=== PATIENT | male | born 1950 | race Caucasian/White ===

== ENCOUNTER 2016-12-11 08:02 | Outpatient (CLI) | payer MEDICARE, BC ==
--- NOTE | ~2016-12-11 | HEMODYNAMI ---
PATIENT:HALLIE SMITH MEDICAL RECORD: [id number] : 46 LOCATION:[facility] ADMISSION DATE: 12/11/16 Generatedon:12/11/20169:50 Patient name: HALLIE SMITH Patient #: [id number] SSN: : 1950 Date of study: 12/11/2016 Page: Of Hemodynamic Procedure Report Patient Data Patient Demographics Procedure consent was obtained First Name: HALLIE Gender: Male Last Name: LUIS : 1950 Patient #: [id number] Age: 66 year(s) Race: Unknown Additional ID: [id number] Contact details [address]: [address] [place] [address] State: [place] City: [place] Zip code: [address] Past Medical History Allergies: No known allergies Admission Admission Data Admission Date: 12/11/2016 Admission Time: 8:02 Procedure Procedure Types Cath Procedure Diagnostic Procedure LHC LHC w/Coronaries Miscellaneous Procedures Moderate Sedation up to 30 minutes Procedure Description Procedure Date Procedure Date: 12/11/2016 Procedure Start Time: 9:36 Procedure End Time: 9:49 Procedure Staff Name Function Mamadou Crawford MD Performing Physician Dorothy William RT Scrub Ara Baptiste RN Nurse Sarah Petty RT Monitor Procedure Data Cath Procedure Fluoroscopy Diagnostic fluoroscopy Total fluoroscopy Time: 2.3 time: 2.3 min min Diagnostic fluoroscopy Total fluoroscopy dose: 492 dose: 492 mGy mGy Contrast Material Contrast Material Type Amount (ml) Isovue 300 57 Entry Location Entry Primary Successful Side Size Upsize Upsize Entry Closure Mayes ccessful Closure Location (Fr) 1 (Fr) 2 (Fr) Remarks Device Remarks Radial Right 6 Fr Mechanical artery Short Compression Estimated blood loss: 5 ml Diagnostic catheters Device Type Used For End Catheter Placement Terumo 5Fr Ramon 110cm LV Angiography catheter Terumo 5Fr Ramon 110cm Left Coronary catheter Angiography Terumo 5Fr Ramon 110cm Right Coronary catheter Angiography Procedure Complications No complications Procedure Medications Medication Administration Route Dosage Oxygen NC 2 l/min Lidocaine 2% added to field 20 Heparin Flush Bag added to field 2 bags (1000units/500ml NS) 0.9% NaCl I.V. 100 ml/hr Radial Cocktail added to field 1 syringe (Verapomil 2mg/Nitro 400mcg/Heparin 1500units) Versed I.V. 2 mg Fentanyl I.V. 100 mcg Versed I.V. 1 mg Fentanyl I.V. 50 mcg Radial Cocktail I.A. 1 syringe (Verapomil 2mg/Nitro 400mcg/Heparin 1500units) Versed I.V. 1 mg Fentanyl I.V. 50 mcg Hemodynamics Rest Heart Rate: 69 (bpm) Pressure Samples Time Site Value (mmHg) Purpose Heart Use Rate(bpm) 9:41 LV 111/-18,-4 EDP 64 9:41 AO 90/52(69) Pullback 76 9:41 LV 112/-13,-6 Pullback 76 Gradients Valve Time Site 1 Site 2 Mean SEP/DFP Peak To Heart Use (mmHg) (sec/min) Peak Rate (mmHg) (bpm) Aortic 9:41 LV AO 35 8 22 76 112/-13,-6 90/52(69) Calculations Valve P-P Mean Valve Index Valve Source Name Gradient Area Flow (cm2) Aortic 22 35 22 35 Snapshots Pre Cath Intra NCS Post Cath Vital Signs Time Heart Resp SPO2 etCO2 NIBP (mmHg) Rhythm Pain Sedation Rate (ipm) (%) (mmHg) Status Level (bpm) 9:14:12 68 20 98 14.9 162/89(122) NSR 0 (11) 10(A) , No pain 9:18:28 68 19 97 21.6 140/84(100) NSR 0 (11) 10(A) , No pain 9:22:40 64 20 96 0 129/80(105) NSR 0 (11) 10(A) , No pain 9:26:50 60 27 96 6.7 124/76(97) NSR 0 (11) 10(A) , No pain 9:31:00 59 18 97 0 130/67(97) NSR 0 (11) 10(A) , No pain 9:35:11 59 18 96 0 124/67(98) NSR 0 (11) 9(A) , No pain 9:39:22 59 16 97 21.6 118/69(91) NSR 0 (11) 9(A) , No pain 9:43:33 61 54 97 36.6 109/57(77) NSR 0 (11) 9(A) , No pain 9:47:39 69 18 98 37.3 111/64(85) NSR 0 (11) 10(A) , No pain Medications Time Medication Route Dose Verified Delivered Reason Notes E ffectiveness by by 9:08:31 Oxygen NC 2 l/min Mamadou Buffie used for Ty Baptiste RN procedure 9:08:38 Lidocaine 2% added 20ml Mamadou Mamadou for local to vial Ty Crawford MD anesthetic field 9:08:45 Heparin Flush added 2 bags Mamadou Mamadou used for Bag to Ty Crawford MD procedure (1000units/500ml field NS) 9:08:55 0.9% NaCl I.V. 100 Mamadou Buffie Per ml/hr Ty Baptiste RN physician 9:19:50 Radial Cocktail added 1 Mamadou Mamadou (Verapomil to syringe Ty Crawford MD 2mg/Nitro field 400mcg/Heparin 1500units) 9:29:24 Versed I.V. 2 mg Mamadou Buffie for sedation Ty Baptiste RN 9:29:30 Fentanyl I.V. 100 mcg Mamadou Buffie for sedation Ty Baptiste RN 9:33:13 Versed I.V. 1 mg Mamadou Buffie for sedation Ty Baptiste RN 9:33:16 Fentanyl I.V. 50 mcg Mamadou Buffie for sedation Ty Baptiste RN 9:39:17 Radial Cocktail I.A. 1 Mamadou Mamadou for (Verapomil syringe Ty Crawford MD vasodilation 2mg/Nitro 400mcg/Heparin 1500units) 9:42:19 Versed I.V. 1 mg Mamadou Buffie for sedation Ty Baptiste RN 9:42:26 Fentanyl I.V. 50 mcg Mamadou Buffie for sedation Ty Baptiste RN Procedure Log Time Note 9:00:32 Sarah Counts RT(R) sent for patient. Start room use. 9:05:50 Patient received from Pre/Post Procedure Room to CCL 2 Alert and oriented. Tansferred to table in Supine position. 9:08:31 Oxygen 2 l/min NC was administered by Ara Baptiste RN; used for procedure; 9:08:38 Lidocaine 2% 20ml vial added to field was administered by Mamadou Crawford MD; for local anesthetic; 9:08:45 Heparin Flush Bag (1000units/500ml NS) 2 bags added to field was administered by Mamadou Crawford MD; used for procedure; 9:08:55 0.9% NaCl 100 ml/hr I.V. was administered by Ara Baptiste RN; Per physician; 9:12:40 Time tracking: Regular hours 9:12:44 Plan of Care:Hemodynamics will remain stable., Cardiac rhythm will remain stable., Comfort level will be maintained., Respiratory function will remain adequate., Patient/ family verbilizes understanding of procedure., Procedure tolerated without complication., Recovers from procedure without complications.. 9:12:57 Warm blankets applied, and ayde hugger turned on for patient comfort. 9:12:58 Correct patient and procedure confirmed by team. 9:12:59 Signed procedure consent form obtained from patient. 9:13:00 ECG and BP/O2 sat monitors applied to patient. 9:13:00 Vital chart was started 9:13:04 Rhythm: sinus rhythm 9:13:06 Full Disclosure recording started 9:13:16 H&P Date Dictated: 11/17/2016 Within 30 days and on chart., H&P Addendum completed by physician on day of procedure. (MUST COMPLETE FOR ALL OUTPATIENTS). 9:13:18 Pre-procedure instructions explained to patient. 9:13:18 Pre-op teaching completed and patient verbalized understanding. 9:13:20 Family unavailable. 9:13:22 Patient NPO since Midnight. 9:13:29 Patient allergic to No known allergies 9:13:31 Is the patient allergic to Iodine/contrast media? No. 9:13:33 Is patient on blood thinner?No 9:13:35 Patient diabetic? No. 9:13:38 Previous problem with sedation/anesthesia? No ? 9:13:39 Snore? No 9:13:40 Sleep apnea? No 9:13:40 Deviated septum? No 9:13:48 Sticks out tongue? Yes 9:13:49 Opens mouth fully? Yes 9:13:51 Airway obstruction? No ? 9:13:52 Dentures? No ? 9:13:54 Pre procedure: right dorsailis pedis pulse 2+ Normal; easily identifiable; not easily obliterated 9:13:56 Modified Deep's test Ulnar < 7 seconds 9:13:58 Patient pain scale 0/10 ?. 9:14:03 IV patent on arrival in left hand with 0.9% NaCl at KVO. 9:14:06 Lab results completed and on chart. 9:14:09 Right Radial & Right Groin area was prepped with chlora-prep and draped in sterile fashion 9:14:10 Alarms reviewed by R. N. 9:14:10 Sharps counted by scrub and verified by R.N. 9:14:13 Use device set Radial Dx 9:14:14 Acist Syringe opened to sterile field. 9:14:14 Medline Cath Pack opened to sterile field. 9:14:15 Bag Decanter opened to sterile field. 9:14:15 Terumo 6Fr Slender Glidesheath opened to sterile field. 9:14:15 St Roberto 260cm J .035 wire opened to sterile field. 9:14:16 Acist Hand Control opened to sterile field. 9:14:16 Acist Manifold opened to sterile field. 9:14:16 Tegaderm 4 x 4 opened to sterile field. 9:14:17 MBrace Wrist Support opened to sterile field. 9:15:45 Baseline sample Acquired. 9:19:50 Radial Cocktail (Verapomil 2mg/Nitro 400mcg/Heparin 1500units) 1 syringe added to field was administered by Mamadou Crawford MD; ; 9:21:49 Final Timeout: patient, procedure, and site verified with staff and physician. All members of the team are in agreement. 9:21:53 Right Radial site verified by team. 9:21:56 Physical assessment completed. ASA score P 2 - A patient with mild systemic disease as per Mamadou Crawford MD. 9:22:01 Sedation plan: IV Moderate Sedation Versed, Fentanyl 9:27:54 Zero performed for pressure channel P1 9:29:24 Versed 2 mg I.V. was administered by Ara Baptiste RN; for sedation; 9:29:30 Fentanyl 100 mcg I.V. was administered by Ara Baptiste RN; for sedation; 9:33:13 Versed 1 mg I.V. was administered by Ara Baptiste RN; for sedation; 9:33:16 Fentanyl 50 mcg I.V. was administered by Ara Baptiste RN; for sedation; 9:36:22 Procedure started. 9:36:28 Local anesthetic to right radial artery with Lidocaine 2% by Mamadou Crawford MD.INITIAL ACCESS ONLY 9:38:20 A 6 Fr Short sheath was inserted into the Right Radial artery 9:39:02 Cook 21G 4cm Radial Needle opened to sterile field. 9:39:17 Radial Cocktail (Verapomil 2mg/Nitro 400mcg/Heparin 1500units) 1 syringe I.A. was administered by Mamadou Crawford MD; for vasodilation; 9:39:29 A Terumo 5Fr Ramon 110cm catheter was advanced over the wire and used for LV Angiography. 9:41:22 LV gram done using ALMEIDA 9:41:27 EF : 55 % 9:41:28 LV hemodynamics recorded. 9:41:30 Injector settings: Ml/sec: 5, Volume: 15, 9:42:00 A Terumo 5Fr Ramon 110cm catheter was advanced over the wire and used for Left Coronary Angiography. 9:42:19 Versed 1 mg I.V. was administered by Ara Baptiste RN; for sedation; 9:42:26 Fentanyl 50 mcg I.V. was administered by Ara Baptiste RN; for sedation; 9:44:06 A Terumo 5Fr Ramon 110cm catheter was advanced over the wire and used for Right Coronary Angiography. 9:45:20 Catheter removed. 9:46:07 Terumo TR Band Standard opened to sterile field. 9:46:16 Sheath removed intact; hemostasis achieved with Mechanical Compression to the Right Radial artery. 9:46:18 Procedure ended.(Physican Out) 9:46:37 Fluoroscopy time 02.30 minutes. 9:46:41 Fluoroscopy dose: 492 mGy 9:46:41 Flurop Dose total: 492 9:46:49 Contrast amount:Isovue 300 57ml. 9:46:50 Sharps counted by scrub and verified by R.N. 9:46:52 TR band inflated with 12cc of air. 9:46:53 Insertion/operative site no bleeding no hematoma. 9:46:59 Post right radial artery:stable, clean and dry 9:47:00 Post Procedure Pulses reassessed and unchanged 9:47:02 Post-procedure physical assessment completed. ASA score P 2 - A patient with mild systemic disease as per Mamadou Crawford MD. 9:47:04 Post procedure rhythm: unchanged. 9:47:06 Estimated blood loss: 5 ml 9:47:08 Post procedure instruction explained to patient.Patient verbalizes understanding. 9:47:09 Patient needs reinforcement of post procedure teaching. 9:47:32 Procedure type changed to Cath procedure, Diagnostic procedure, LHC, LHC w/Coronaries, Miscellaneous Procedures, Moderate Sedation up to 30 minutes 9:47:37 Procedure Complication : No complications 9:47:40 See physician's report for complete and final results. 9:47:59 Procedure and supply charges have been captured, reviewed, submitted and are correct. 9:49:31 Vital chart was stopped 9:49:34 Report given to Pre/Post Procedure Room. 9:49:36 Patient transfered to Pre/Post Procedure Room with Stretcher. 9:49:49 Procedure ended. 9:49:49 Full Disclosure recording stopped 9:49:53 End room use (Document Last) Device Usage Item Name Manufacture Quantity Catalog Hospital Part Current Minimal Lot# / Number Charge Number Stock Stock Serial# Code Acist Acist 1 [id number] [id number] [id number] [id number] 20 Syringe [employer] Medline Cardinal 1 [id number] [id number] 95370 [id number] 5 Cath Pack Health Bag Microtek 1 2001S [id number] 20025 875156 5 Decanter [employer] Terumo 6Fr Terumo 1 [id number] 596982 095335 241621 [address] St Roberto 1 420808 223898 317056 240454 30 260cm J .035 wire Acist Hand Acist 1 28661 780755 436418 174033 5 Control [employer] Inc Acist Acist 1 95273 846609 847992 969470 5 Manifold [employer] Inc Tegaderm 4 3M 1 1626W 727481 682389 667483 5 x 4 MBrace Advanced 1 140-0250-00 820784 27982 018836 5 Wrist Vascular Support [employer] Cook 21G [place] 1 [id number] 774807 468025 014054 5 4cm Radial Needle Terumo 5Fr Terumo 1 50-3047 099698 854337 036693 5 Ramon 110cm catheter Terumo TR Terumo 1 [id number] 718698 803030 571956 40 Band Standard Signature Audit [place] Stage Time Signature Unsigned Intra-Procedure 12/11/2016 Sarah 9:50:12 AM Counts RT(R) Signatures Monitor : Sarah Signature : Counts RT Date : Time : [place] [id number] [facility] [place] [address]
[2016-12-11 07:35] VITALS: BP 136/64
[2016-12-11 07:47] LABS: BASOPHILS 0.2 % (0-2); EOSINOPHILS 1.7 % (0-7); HEMATOCRIT 45.7 % (42.0-54.0); HEMOGLOBIN 15.5 g/dL (13.5-17.5); IMMATURE GRANULOCYTES 0.2 % (0-5); LYMPHOCYTES 34.3 % (15-50); MCHC 33.9 g/dL (31.0-37.0); MCV 97.2 fL (80.0-100.0); MEAN PLATELET VOLUME 12.3 fL (7.4-10.4); MONOCYTES 8.4 % (2-11); NEUTROPHILS 55.2 % (40-80); PLATELET COUNT 170 10x3/uL (130-400); RDW 12.9 % (11.5-14.5)
[2016-12-11 07:55] LABS: CALC OSMOLALITY 278 mosm/kg (275-300); CHLORIDE - SERUM 105 mmol/L (98-107); GLUCOSE 96 mg/dL (74-106); SODIUM 139 mmol/L (136-145); UREA NITROGEN 16 mg/dL (7-18); eGFR NON AFRICAN AMERICAN 79 mL/min (90-120)
[~2016-12-11 08:02] MED LIST: LISINOPRIL10 MG PO
[2016-12-11] MEDS ORDERED: NORVASC5 MG PO (10:03)
--- NOTE | 2016-12-11 10:15 | NUR ---
2L NC, NO RESP DISTRESS. RIGHT WRIST TR BAND CDI, NO BLEEDING OR HEMATOMA NOTED. NO C/O PAIN OR NAUSEA. VSS. CALL LIGHT WITHIN REACH.
--- NOTE | 2016-12-11 10:45 | NUR ---
2L NC, NO RESP DISTRESS. RIGHT WRIST TR BAND CDI, NO BLEEDING OR HEMATOMA NOTED. NO C/O PAIN OR NAUSEA. VSS. WILL CONTINUE TO MONITOR.
--- NOTE | 2016-12-11 11:00 | NUR ---
SANDWICH TRAY AND DRINK GIVEN. NO C/O NAUSEA OR PAIN. VSS. RIGHT WRIST TR BAND CDI, NO BLEEDING OR HEMATOMA NOTED.
--- NOTE | 2016-12-11 11:30 | NUR ---
3CC OF AIR REMOVED FROM TR BAND, NO BLEEDING NOTED.
--- NOTE | 2016-12-11 11:49 | NUR ---
3CC OF AIR REMOVED FROM TR BAND, NO BLEEDING NOTED.
--- NOTE | 2016-12-11 12:15 | NUR ---
2CC OF AIR REMOVED FROM TR BAND, NO BLEEDING NOTED. LEFT AC PIV D/C'D WITH CATHETER INTACT, BAND AID TO SITE. UP TO BEDSIDE TO GET DRESSED.
--- NOTE | 2016-12-11 12:19 | NUR ---
TO RESTROOM TO VOID.
--- NOTE | 2016-12-11 12:23 | NUR ---
REMAINING AIR REMOVED FROM TR BAND, DRESSING TO SITE. DISCHARGE INSTRUCTIONS GIVEN, VERBALIZED UNDERSTANDING.
--- NOTE | 2016-12-11 12:30 | NUR ---
TAKEN OUT VIA WHEELCHAIR BY CATH ASSOCIATE APPLICATION DEVELOPER. LEFT FACILITY WITH FAMILY AND ALL PERSONAL BELONGINGS.
== END 2016-12-11 12:30 | disposition home or self-care (01) ==
LOC: D.CATH 08:02
PROVIDERS: Internal Medicine Cardiovascular Disease
DX: I25.119 Atherosclerotic heart disease of native coronary artery with unspecified angina pectoris (principal); Z01.812 Encounter for preprocedural laboratory examination